=== PATIENT | male | born 1990 | race Caucasian/White ===

== ENCOUNTER 2019-01-24 10:31 | Observation (INO) ==
[2019-01-24] MEDS ORDERED: Isovue-370 500 ML BOTTLE IVP ONE (10:59)
--- NOTE | 2019-01-24 11:00 | Emergency Department Note ---
Disposition Clinical Impression: Abdominal pain Qualifiers: Abdominal location: generalized Qualified Code(s): R10.84 - Generalized abdominal pain Disposition: Still a Patient General Adult HPI - General Chief complaint: ED Abdominal Pain Stated complaint: Abdominal Pain/Diarrhea/Vomiting Time Seen by Provider: 01/24/19 10:44 Source: patient, family Mode of arrival: ambulatory Limitations: no limitations Nursing Notes Reviewed: Yes Vital Signs Reviewed: Yes - History of Present Illness HPI Narrative: Attestation note: Patient was seen with the emergency medicine resident/nurse practitioner/physician entry level administrative assistant/transitional resident/medical student: Dr. Lv Stevens I have personally performed a face to face evaluation on this patient. I have reviewed and agree with history and physical examination patient management and disposition. Briefly the salient points of the case are as follows: 28-year-old obese male states for 3 months had intermittent abdominal cramping and loose watery stools nausea and vomiting. Says this happens several times a day. Although he does not have any external signs of any twisting condition or weight loss. Patient has generalized abdominal tenderness no rebound or guarding. He is afebrile with stable vital signs essentially patient did bring a stool sample which appears odorous and reminds us of CHF. No recent antibiotics. We will obtain Abdominal pelvic CT IV fluids screening labs anti-medics analgesics and a C. difficile toxin stool study. Disposition pending. Pain Scale: 8 - Related Data Allergies Allergy/AdvReac Type Severity Reaction Status Date / Time Amoxicillin AdvReac Rash Verified 01/24/19 10:32 Penicillins AdvReac Rash Verified 01/24/19 10:32 Past Medical History - Past Medical History Medical history: Reports: GERD Psychiatric history: Reports: depression - Social History Smoking Status: Current every day smoker Smokeless Tobacco Status: No Alcohol use: Reports: none Drug use: Reports: none Physical Exam - General Limitations: no limitations General appearance: alert Course Vital Signs Temperature 97.6 F 01/24/19 10:32 Pulse Rate 85 01/24/19 10:32 Respiratory Rate 22 01/24/19 10:32 Blood Pressure 129/85 01/24/19 10:32 O2 Sat by Pulse Oximetry 98 01/24/19 10:32 Temperature 97.6 F 01/24/19 10:45 Pulse Rate 85 01/24/19 10:45 Respiratory Rate 22 01/24/19 10:45 Blood Pressure 129/85 01/24/19 10:45 O2 Sat by Pulse Oximetry 99 01/24/19 10:47 Oxygen Delivery Oxygen Delivery Room Air
[2019-01-24] MEDS ORDERED: *HR* Promethazine 25 MG/ML VIAL IVP ONE ×2 (11:01→16:23)
[2019-01-24] MEDS ORDERED: 0.9 % Sodium Chloride 1,000 ML IVC ONE (11:01)
[2019-01-24] MEDS: *HR* FentaNYL (PF) 100 MCG/2 ML VIAL IVP ONE (11:15)
[2019-01-24 11:48] LABS: Basophils % 0.4 %; Eosinophils # 0.3 K/mcL (0.0-0.6); Eosinophils % 2.8 %; Hematocrit 48.3 % (37.5-50.1); Hemoglobin 16.9 g/dL (12.9-16.9); Immature Granulocytes % 0.2 % (0-4); Lymphocytes # 1.9 K/mcL (0.6-4.6); Lymphocytes % 21.1 %; Mean Corpuscular Hemoglobin 30.6 pg (28.0-33.3); Mean Corpuscular Volume 87.5 fL (83.0-100.0); Mean Platelet Volume 10.7 fL (9.4-12.4); Neutrophils # 5.8 K/mcL (1.6-8.9); Platelet Count 199 K/mcL (140-400); Red Blood Count 5.52 M/mcL (4.19-5.50); Red Cell Distribution Width 13.2 % (11.5-14.5); Segmented Neutrophils % 64.5 %
[2019-01-24 12:08] LABS: Alanine Aminotransferase 31 Units/L (7-52); Albumin 4.3 g/dL (3.5-5.7); Albumin/Globulin Ratio 1.4 (1.1-2.2); Alkaline Phosphatase 86 Units/L (34-104); Aspartate Amino Transferase 17 Units/L (13-39); BUN/Creatinine Ratio 19 (6-26); Bilirubin,Direct 0.2 mg/dL (0.0-0.2); Bilirubin,Indirect 1.2 mg/dL (0.0-1.2); Bilirubin,Total 1.4 mg/dL (0.3-1.0); Blood Urea Nitrogen 13 mg/dL (6-20); Carbon Dioxide 24 mEq/L (23-29); Chloride 108 mEq/L (98-107); Glucose 94 mg/dL (70-105); Lipase 6 Units/L (11-82); Osmolality,Calculated 286 (280-300); Potassium 3.3 mEq/L (3.5-5.1); Sodium 138 mEq/L (136-145); Total Protein 7.3 g/dL (6.4-8.9); eGFR For Non-African Americans > 60 (> 60)
[2019-01-24] MEDS ORDERED: *HR* FentaNYL (PF) 100 MCG/2 ML VIAL IVP ONE (16:00)
[2019-01-24] MEDS ORDERED: Naloxone 0.4 MG/ML INJ IVP PRN ×2 (16:26→16:27)
[2019-01-24] MEDS ORDERED: *HR* Promethazine 25 MG/ML VIAL IVP PRN (16:27)
--- NOTE | 2019-01-24 16:36 | Emergency Department Note ---
Disposition Clinical Impression: Abdominal pain Qualifiers: Abdominal location: generalized Qualified Code(s): R10.84 - Generalized abdominal pain Disposition: Admitted As Inpatient Time of Disposition: 20:23 Abdominal Pain HPI - General Chief Complaint: ED Abdominal Pain Stated Complaint: Abdominal Pain/Diarrhea/Vomiting Time Seen by Provider: 01/24/19 10:44 Source: patient, family Mode of arrival: ambulatory Limitations: no limitations Nursing Notes Reviewed: Yes Vital Signs Reviewed: Yes - History of Present Illness HPI Narrative: 28-year-old male past medical history of recurrent abdominal pain, nausea vomiting Patient states has been worsening over the past week Patient states seen recently in the past 2 days in hospital in [place] was given multiple doses of Zofran and capsaicin cream which she says did not relieve his symptoms Patient states has been scheduled for GI follow-up for EGDs and colonoscopies which he has not kept Patient states Phenergan is the only thing I will relieve his nausea. Patient complains of 10 out of 10 diffuse abdominal pain as well as multiple episodes of nausea and vomiting throughout the past week. Pt Subjective Complaint: abdominal pain Onset (ago): week(s) Consistency: constant, Worsening Pain Severity: severe Pain Scale: 10 Quality: stabbing Radiation: none Migration to: no migration Improves with: nothing Worsens with: movement - Related Data Allergies Allergy/AdvReac Type Severity Reaction Status Date / Time Amoxicillin AdvReac Rash Verified 01/24/19 10:32 Penicillins AdvReac Rash Verified 01/24/19 10:32 All systems ED: reviewed and negative except as stated. Review of Systems: As Per HPI Constitutional: Reports: fever, chills Cardiovascular: Denies: chest pain Respiratory: Denies: dyspnea Gastrointestinal: Reports: abdominal pain, nausea, vomiting, diarrhea. Denies: constipation, hematemesis, hematochezia Genitourinary: Denies: hematuria Musculoskeletal: Denies: back pain, neck pain Neurological: Denies: headache, weakness, numbness, paresthesias Abdominal Pain PMH - Past Medical History Medical history: Reports: GERD Male Surgical History: Reports: no surgical history Psychiatric history: Reports: depression - Social History Smoking status: Current every day smoker Alcohol use: Reports: none Drug use: Reports: none Physical Exam - General Limitations: no limitations General appearance: alert, in no apparent distress - Head Head exam: atraumatic, normocephalic, normal inspection - Eye Eye exam: Present: normal appearance, PERRL, EOMI. Absent: scleral icterus - Neck Neck exam: Present: normal inspection, trachea midline - Chest Chest inspection: Present: normal inspection, symmetric chest wall rise - Respiratory Respiratory exam: Present: normal lung sounds bilaterally. Absent: respiratory distress, wheezes, stridor, accessory muscle use, prolonged expiratory phase - Cardiovascular Cardiovascular exam: Present: regular rate, normal rhythm, normal heart sounds, +S1, +S2. Absent: systolic murmur, diastolic murmur, JVD, +S3, +S4 - Abdominal Exam Abdominal exam: Present: soft, tenderness, normal bowel sounds. Absent: distention, guarding, rebound, rigidity, organomegaly Abdominal tenderness: Present: diffuse - Neurological Exam Neurological exam: Present: alert, oriented X3 - Psychiatric Psychiatric exam: Present: agitated - Skin Skin exam: Present: warm, dry, intact, normal color. Absent: rash, cyanosis, diaphoresis, erythema, pallor, mottled Course Course Narrative: Abdominal labs CT scan abdomen and pelvis Phenergan was fentanyl for management of patient's symptoms IV fluids Vital Signs Temperature 97.6 F 01/24/19 10:32 Pulse Rate 85 01/24/19 10:32 Respiratory Rate 22 01/24/19 10:32 Blood Pressure 129/85 01/24/19 10:32 O2 Sat by Pulse Oximetry 98 01/24/19 10:32 Temperature 98.1 F 01/24/19 20:09 Pulse Rate 71 01/24/19 20:09 Respiratory Rate 16 01/24/19 20:09 Blood Pressure 124/78 01/24/19 20:09 O2 Sat by Pulse Oximetry 96 01/24/19 20:09 Oxygen Delivery Oxygen Delivery Room Air Abdominal Pain - MDM Narrative Medical decision making narrative: CT scan shows colitis Patient continues to complain of intense abdominal pain and nausea and vomiting despite fluid management and medication Patient be admitted to hospitalist medicine service for intractable nausea and vomiting - Lab Data Lab results reviewed: Yes I reviewed the patient's lab results. Result diagrams: 01/24/19 11:28 01/24/19 11:28 Lab Results 01/24/19 01/24/19 01/24/19 Range/Units 11:28 11:28 13:47 WBC 9.0 (4.3-11.1) K/mcL RBC 5.52 H (4.19-5.50) M/mcL Hgb 16.9 (12.9-16.9) g/dL Hct 48.3 (37.5-50.1) % MCV 87.5 (83.0-100.0) fL MCH 30.6 (28.0-33.3) pg MCHC 35.0 (31.6-35.5) g/dL RDW 13.2 (11.5-14.5) % Plt Count 199 (140-400) K/mcL MPV 10.7 (9.4-12.4) fL Immature Gran % 0.2 (0-4) % Seg Neutrophils % 64.5 % Lymphocytes % 21.1 % Monocytes % 11.0 % Eosinophils % 2.8 % Basophils % 0.4 % Neutrophils # 5.8 (1.6-8.9) K/mcL Lymphocytes # 1.9 (0.6-4.6) K/mcL Monocytes # 1.0 (0.0-1.3) K/mcL Eosinophils # 0.3 (0.0-0.6) K/mcL Basophils # 0.0 (0.0-0.2) K/mcL Sodium 138 (136-145) mEq/L Potassium 3.3 L (3.5-5.1) mEq/L Chloride 108 H (98-107) mEq/L Carbon Dioxide 24 (23-29) mEq/L BUN 13 (6-20) mg/dL Creatinine 0.70 (0.70-1.30) mg/dL Est GFR ( Amer) > 60 (> 60) Est GFR (Non-Af Amer) > 60 (> 60) BUN/Creatinine Ratio 19 (6-26) Glucose 94 (70-105) mg/dL Calculated Osmolality 286 (280-300) Calcium 9.0 (8.6-10.3) mg/dL Total Bilirubin 1.4 H (0.3-1.0) mg/dL Direct Bilirubin 0.2 (0.0-0.2) mg/dL Indirect Bilirubin 1.2 (0.0-1.2) mg/dL AST 17 (13-39) Units/L ALT 31 (7-52) Units/L Alkaline Phosphatase 86 (34-104) Units/L Serum Total Protein 7.3 (6.4-8.9) g/dL Albumin 4.3 (3.5-5.7) g/dL Globulin 3.0 (2.4-3.5) g/dL Albumin/Globulin Ratio 1.4 (1.1-2.2) Lipase 6 L (11-82) Units/L Stl C. diff Tox B Gene Negative (Negative) - EKG Data EKG attestation: Yes I reviewed and interpreted this EKG. EKG results narrative: Patient EKG shows sinus rhythm with a heart of 73 bpm [place] interval of 180 ms, QRS duration of 111 ms, QT/QTc interval 401/440 ms respectively. There are no significant ST segment elevations, depressions, pathologic Q waves, abnormal T- wave inversions, or any other signs of acute ischemic change. There is no EKG available for comparison at this time.
--- NOTE | 2019-01-24 17:15 | Internal Med History&Physical ---
Date of Encounter: 01/24/19 Time of Encounter: 17:05 Internal Medicine - H&P: HPI Admitted From: Home Plans for Post Hospital Care: Home History of present illness: Mr. Condon is a 28 year old male with past medical history of depression, GERD, and chronic diarrhea presented with 3 months of history of intermittent diarrhea, associated with nausea, vomiting, and abdominal pain. Patient reported chronic diarrhea since adolescence, usually lasts about a week and then remits. He has been tested by PCP and was told he has mild lactose intolerance. However, his GI symptoms exacerbated in the last 3 months which include severe abdominal pain, nausea, vomiting, and watery/foul smell diarrhea. He also had a significant weight loss and has to take marijuana to ease pain. He is having about 5 time diarrhea every day, it also occurs at night when he is sleeping. He noticed mucus in the stool but denies any blood. Family history is his mo ther also has similar GI problem. Patient denies any recent travel, sick contact, drinking well water. He has 2 dogs at home. He denies fever, chills, night sweats, or sleeping habit change. Denies skin rash, myalgia, or arthralgia. While in the ED, patient vital signs were stable, he does not appear dehydrated. His labs is only significant for low potassium. A C. difficile toxin study was negative. Due to his severe GI symptoms, patient will be admitted for further evaluation. CODE STATUS discussed with patient, he wishes to be full code. Past Med Surg Social Fam HX - Past Medical History Medical history: GERD Psychiatric history: depression - Social History Smoking Status: Current every day smoker Smokeless Tobacco Status: No Alcohol use: none Drug use: none Internal Medicine - H&P: Meds Allergy/AdvReac Type Severity Reaction Status Date / Time Amoxicillin AdvReac Rash Verified 01/24/19 10:32 Penicillins AdvReac Rash Verified 01/24/19 10:32 All Systems PM: A 10-system review of systems was performed and is negative for pertinent findings except as documented above in the HPI. Review of systems: REVIEW OF SYSTEMS: CONSTITUTIONAL: No weight loss, fever, chills, weakness or fatigue. HEENT: Eyes: No visual loss, blurred vision, double vision or yellow sclerae. Ears, Nose, Throat: No hearing loss, sneezing, congestion, runny nose or sore throat. SKIN: No rash or itching. CARDIOVASCULAR: No chest pain, chest pressure or chest discomfort. No palpitations or edema. RESPIRATORY: No shortness of breath, cough or sputum. GASTROINTESTINAL: see HPI. GENITOURINARY: No dysuria, urgency, or frequency. NEUROLOGICAL: No headache, dizziness, syncope, paralysis, ataxia, numbness or tingling in the extremities. No change in bowel or bladder control. MUSCULOSKELETAL: No muscle, back pain, joint pain or stiffness. HEMATOLOGIC: No anemia, bleeding or bruising. LYMPHATICS: No enlarged nodes. No history of splenectomy. PSYCHIATRIC: No history of depression or anxiety. ENDOCRINOLOGIC: No reports of sweating, cold or heat intolerance. No polyuria or polydipsia. - Constitutional Vitals: Temp Pulse Resp BP Pulse Ox 97.6 F 66 16 139/73 99 01/24/19 10:45 01/24/19 13:48 01/24/19 13:48 01/24/19 13:48 01/24/19 13:48 General appearance: Present: A&O X 3 Exam: PHYSICAL EXAMINATION: GENERAL APPEARANCE: The patient is alert, oriented and in no acute distress. HEENT: Head is normocephalic. The sinuses are nontender. Pupils are equal and reactive. The nares are patent. Oropharynx clear without lesions. NECK: Supple without lymphadenopathy. HEART: Regular rate and rhythm. LUNGS: No crackles or wheezes are heard. ABDOMEN: Soft, nontender, nondistended with good bowel sounds heard. Inguinal area is normal. EXTREMITIES: Without cyanosis, clubbing or edema. NEUROLOGICAL: Gross nonfocal. SKIN: Warm and dry without any rash. Internal Med - H&P Results - Labs CBC & Chem 7: 01/24/19 11:28 01/24/19 11:28 Labs: Short CBC 01/24/19 Range/Units 11:28 WBC 9.0 (4.3-11.1) K/mcL Hgb 16.9 (12.9-16.9) g/dL Hct 48.3 (37.5-50.1) % Plt Count 199 (140-400) K/mcL Neutrophils # 5.8 (1.6-8.9) K/mcL BMP 01/24/19 11:28 Sodium 138 Potassium 3.3 L Chloride 108 H Carbon Dioxide 24 BUN 13 Creatinine 0.70 Glucose 94 Calcium 9.0 Liver Function 01/24/19 Range/Units 11:28 Total Bilirubin 1.4 H (0.3-1.0) mg/dL Direct Bilirubin 0.2 (0.0-0.2) mg/dL AST 17 (13-39) Units/L ALT 31 (7-52) Units/L Alkaline Phosphatase 86 (34-104) Units/L Albumin 4.3 (3.5-5.7) g/dL - Impressions ITS Impressions Abdomen/Pelvis CT 01/24/19 10:59 IMPRESSION: 1. Fluid throughout the colon and rectum compatible with nonspecific diarrheal disease. No colonic wall thickening to indicate colitis 2. Hepatic steatosis 3. 1 cm right adrenal myelolipoma D/ / Tom Heard MD / Tom Heard MD Interpreting Provider: Tom Heard MD - Assessment and Plan (1) Abdominal pain, vomiting, and diarrhea Current Visit: Yes Status: Acute Assessment and plan: 28-year-old male with past medical history of depression, GERD, and chronic diarrhea presented with 3 months history of worsening GI symptoms including abdominal pain, nausea, vomiting, and diarrhea. pt reported a history of mild lactose intolerance. Denies sick contact, recent travel, or drinking of contaminated water. Stool was negative for C. difficile. CT abdomen/pelvis no intra-abdominal pathology or bowel wall thickening. Based on the history, lab values, and imaging studies, inframammary diarrhea is unlikely. he denies history of chronic pancreatitis or cystic fibrosis, malabsorption related diarrhea is less likely. Nocturnal symptoms and a watery stool make the secretory diarrhea likely. IBS is a diagnosis of exclusion. - We will check stool for occult blood and calprotectin to rule out IBD. - anti-TTG to rule out celiac disease. - No diary product and watch change of diarrhea. - Supportive care with IV fluid and pain medicine. - GI consult, appreciate help. (2) Depression Current Visit: No Status: Chronic Assessment and plan: Continue home medication. Qualifiers: Depression Type: unspecified Qualified Code(s): F32.9 - Major depressive disorder, single episode, unspecified (3) GERD (gastroesophageal reflux disease) Current Visit: No Status: Chronic Assessment and plan: Continue home medication. Qualifiers: Esophagitis presence: esophagitis presence not specified Qualified Code(s): K21.9 - Gastro-esophageal reflux disease without esophagitis (4) DVT prophylaxis Current Visit: Yes Status: Acute Assessment and plan: Heparin subcutaneous. - Time Spent With Patient Total time spent is greater than 50% in coordination of care (as documented) at patient's floor/unit and/or counseling patient: Greater than 35 minutes
[2019-01-24] MEDS ORDERED: SODIUM CHLORIDE/NAHCO3/KCL/PEG 4,000 ML SOLN.RECON PO ONE (18:08)
[2019-01-24] MEDS: *HR* Heparin 5,000 UNIT/ML VIAL SQ SCH (18:33)
[2019-01-24] MEDS: Ondansetron 4 MG/2 ML VIAL IVP PRN (18:33)
[2019-01-24] MEDS: Ringers Solution, Lactated 3,000 ML IVC SCH (18:33)
[2019-01-24] MEDS ORDERED: *HR* LORazepam 2 MG/ML VIAL IVP ONE (19:23)
[2019-01-24] MEDS: traMADol 50 MG TABLET PO PRN (20:13)
[2019-01-25] MEDS: traMADol 50 MG TABLET PO PRN (01:36)
[2019-01-25] MEDS: Nicotine 14 MG PATCH.TD24 TD SCH ×2 (01:40→11:07)
[2019-01-25 01:56] LABS: Basophils % 0.3 %; Eosinophils # 0.3 K/mcL (0.0-0.6); Eosinophils % 4.1 %; Hematocrit 44.2 % (37.5-50.1); Immature Granulocytes % 0.1 % (0-4); Lymphocytes # 2.1 K/mcL (0.6-4.6); Lymphocytes % 29.1 %; Mean Corpuscular HGB Conc 34.4 g/dL (31.6-35.5); Mean Corpuscular Hemoglobin 30.5 pg (28.0-33.3); Mean Corpuscular Volume 88.6 fL (83.0-100.0); Mean Platelet Volume 10.7 fL (9.4-12.4); Monocytes # 0.8 K/mcL (0.0-1.3); Monocytes % 10.5 %; Platelet Count 169 K/mcL (140-400); Red Blood Count 4.99 M/mcL (4.19-5.50); Red Cell Distribution Width 13.5 % (11.5-14.5); Segmented Neutrophils % 55.9 %
[2019-01-25 02:05] LABS: Hemoglobin 15.2 g/dL (12.9-16.9)
[2019-01-25 02:16] LABS: Alanine Aminotransferase 34 Units/L (7-52); Albumin 3.7 g/dL (3.5-5.7); Albumin/Globulin Ratio 1.5 (1.1-2.2); Alkaline Phosphatase 72 Units/L (34-104); Aspartate Amino Transferase 22 Units/L (13-39); BUN/Creatinine Ratio 15 (6-26); Bilirubin,Total 1.4 mg/dL (0.3-1.0); Blood Urea Nitrogen 11 mg/dL (6-20); Calcium 8.5 mg/dL (8.6-10.3); Carbon Dioxide 25 mEq/L (23-29); Chloride 109 mEq/L (98-107); Globulin 2.5 g/dL (2.4-3.5); Glucose 90 mg/dL (70-105); Magnesium 1.9 mg/dL (1.6-2.6); Osmolality,Calculated 285 (280-300); Phosphorous 3.3 mg/dL (2.7-4.5); Potassium 3.5 mEq/L (3.5-5.1); Sodium 138 mEq/L (136-145); Total Protein 6.2 g/dL (6.4-8.9); eGFR For Non-African Americans > 60 (> 60)
[2019-01-25] MEDS: Ringers Solution, Lactated 3,000 ML IVC SCH (03:15)
[2019-01-25] MEDS: Ondansetron 4 MG/2 ML VIAL IVP PRN (05:39)
[2019-01-25] MEDS: Acetaminophen 325 MG TABLET PO PRN ×2 (05:39→13:14)
[2019-01-25] MEDS: *HR* Heparin 5,000 UNIT/ML VIAL SQ SCH (05:40)
[2019-01-25] MEDS ORDERED: *HR* FentaNYL (PF) 100 MCG/2 ML VIAL ONE (07:12)
[2019-01-25] MEDS ORDERED: *HR* Midazolam HCl 5 MG/5 ML VIAL IVP ONE ×2 (07:13→07:23)
[2019-01-25] MEDS ORDERED: *HR* FentaNYL (PF) 100 MCG/2 ML VIAL IVP ONE (07:23)
[2019-01-25] MEDS ORDERED: Simethicone 40 MG/0.6 ML MLS IR ONE (07:23)
--- NOTE | 2019-01-25 07:23 | Pre-Sedation Evaluation ---
Pre-sedation evaluation - Pre-sedation checklist Date of procedure: 01/25/19 Recent Vitals: Last Vital Signs Temp 97.7 F 01/25/19 06:57 Pulse 71 01/25/19 06:57 Resp 18 01/25/19 06:57 BP 103/73 01/25/19 06:57 Pulse Ox 97 01/25/19 06:57 ASA Classification *see protocol: CLASS II-Mild systemic disease
[2019-01-25] MEDS: *HR* FentaNYL (PF) 100 MCG/2 ML VIAL IVP ONE (07:39)
--- NOTE | 2019-01-25 09:28 | Gastroenterology Consult Note ---
Date of Encounter: 01/25/19 Time of Encounter: 08:30 - Assessment and plan (1) Abdominal pain, vomiting, and diarrhea Current Visit: Yes Status: Acute Assessment and plan: Start PPI. EGD and colonoscopy today to rule out esophagitis, PUD, gastritis, duodenitis, or colitis. Stool studies pending. Treat symptomatically, can follow up with GI as an outpatient after discharge. (2) GERD (gastroesophageal reflux disease) Current Visit: No Status: Chronic Qualifiers: Esophagitis presence: esophagitis presence not specified Qualified Code(s): K21.9 - Gastro-esophageal reflux disease without esophagitis - Time Spent With Patient Total time spent is greater than 50% in coordination of care (as documented) at patient's floor/unit and/or counseling patient: GI History of Present Illness - Data of Consult Patient: new to practice Consult date: 01/25/19 Requesting Physician: Gisselle Looney MD - Consult Narrative Reason for consult: nausea/vomiting/diarrhea History of present illness: Mr. Condon is a 28 year old male with past medical history of depression, GERD, and chronic diarrhea presented with 3 months of history of intermittent diarrhea, associated with nausea, vomiting, and abdominal pain. Patient reported chronic diarrhea since adolescence, usually lasts about a week and then remits. He states has been much worse for the past 3 months with severe abdominal pain, nausea, vomiting, and watery/foul smell diarrhea. He also had a significant weight loss and has to take marijuana to ease pain. He is having about 5 diarrhea stoolsevery day, it also occurs at night when he is sleeping. He noticed mucus in the stool but denies any blood. He has been tested by PCP and was told he has mild lactose intolerance. He does admit to some streaky bright red hematemesis. Family history is his mother also has similar GI problem. Patient denies any recent travel, sick contact, drinking well water. He has 2 dogs at home. He denies fever, chills, night sweats, or sleeping habit change. Denies skin rash, myalgia, or arthralgia. Past Med Surg Social Fam HX - Past Medical History Medical history: GERD Psychiatric history: depression - Social History Smoking Status: Current every day smoker Packs per day: 1 Smokeless Tobacco Status: No Alcohol use: none Drug use: marijuana - Family History Grandmother Age: 52 Age at : 52 Cause of : CHF Review of Systems: GI: as per [place] GENERAL: denies fever, has some chills EYES: denies yellow discoloration ENT: denies pain with swallowing or difficulty swallowing CARDIO: denies chest pain, palpitations RESP: No Shortness of breath with exertion : denies change in color of urine NEURO: denies any weakness HEME: Denies any bruising MS: denies joint pain, joint swelling or back pain. DERM: denies rash or itching PSYCH: history of anxiety and depression - Constitutional Vitals: Temp Pulse Resp BP Pulse Ox 97.7 F 61 18 111/48 97 01/25/19 06:57 01/25/19 07:49 01/25/19 07:49 01/25/19 07:49 01/25/19 07:49 Exam: CONSTITUTIONAL:alert, no acute distress.HEAD:normocephalic.EYES:no jaundice.NECK:no obvious swelling.HEART:regular rate and rhythm, no murmurs.LUNGS:bilateral fair air entry.ABDOMEN:non distended, soft, tender epigastric pain, no masses palpable, no organomegaly.RECTAL EXAM:Deferred.EXTREMITIES:no clubbing, cyanosis or edema, obese.SKIN:no stigmata of chronic liver disease.NEUROLOGIC:no obvious focal defect. Results - Labs CBC & Chem 7: 01/25/19 01:21 01/25/19 01:21 Labs: Last Result 01/25/19 01:21 Calcium 8.5 L Entire Visit 01/25/19 01/25/19 01:21 01:21 Hgb 15.2 D Hct 44.2 Total Bilirubin 1.4 H AST 22 ALT 34 - Impressions Impressions Abdomen/Pelvis CT 01/24/19 10:59 IMPRESSION: 1. Fluid throughout the colon and rectum compatible with nonspecific diarrheal disease. No colonic wall thickening to indicate colitis 2. Hepatic steatosis 3. 1 cm right adrenal myelolipoma D/ / Tom Heard MD / Tom Heard MD Interpreting Provider: Tom Heard MD Consult Discharge Plan - Plan Referrals: Fauzia Camarena, [employer]LECT[employer] MACHINIST [Primary Care Provider] -
[2019-01-25 14:19] VITALS: BP 107/65
[2019-01-25 14:37] LABS: Amphetamine Screen,Urine Negative ng/mL (Cutoff=1000); Barbiturate Screen,Urine Negative ng/mL (Cutoff=200); Benzodiazepines Screen,Urine Positive ng/mL (Cutoff=200); Cannabinoid Screen,Urine Positive ng/mL (Cutoff = 50); Cocaine Screen,Urine Negative ng/mL (Cutoff= 300); Opiate Screen,Urine Negative ng/mL (Cutoff=300); Phencyclidine Screen,Urine Negative ng/mL (Cutoff=25)
--- NOTE | 2019-01-25 14:54 | Discharge Summary ---
- NOTES TO OUTPATIENT PROVIDER Notes to Outpatient Provider: f/u with GI within a week. Orders not resulted at time of discharge: Pending orders 01/24/19 17:20 Tissue Transglutaminase Ab,IgA Routine Tissue Transglutaminase Ab,IgG Routine 01/25/19 07:47 Surgical Pathology [PTH] Routine Date of Encounter: 01/25/19 Time of Encounter: 14:49 - Discharge Diagnosis (1) Abdominal pain, vomiting, and diarrhea Priority: Primary Status: Acute (2) Depression Priority: Secondary Status: Chronic Qualifiers: Depression Type: unspecified Qualified Code(s): F32.9 - Major depressive disorder, single episode, unspecified (3) GERD (gastroesophageal reflux disease) Priority: Secondary Status: Chronic Qualifiers: Esophagitis presence: esophagitis presence not specified Qualified Code(s): K21.9 - Gastro-esophageal reflux disease without esophagitis (4) DVT prophylaxis Priority: Primary Status: Acute Hospital course: Mr. Condon is a 28 year old male with past medical history of depression, GERD, and chronic diarrhea presented with 3 months of history of intermittent diarrhea, associated with nausea, vomiting, and abdominal pain. Patient reported chronic diarrhea since adolescence, usually lasts about a week and then remits. He has been tested by PCP and was told he has mild lactose intolerance. However, his GI symptoms exacerbated in the last 3 months which include severe abdominal pain, nausea, vomiting, and watery/foul smell diarrhea. He also had a significant weight loss and has to take marijuana to ease pain. He is having about 5 time diarrhea every day, it also occurs at night when he is sleeping. He noticed mucus in the stool but denies any blood. Family history is his mother also has similar GI problem. Patient denies any recent travel, sick contact, drinking well water. He has 2 dogs at home. He denies fever, chills, night sweats, or sleeping habit change. Denies skin rash, myalgia, or arthralgia. While in the ED, patient vital signs were stable, he does not appear dehydrated. His labs is only significant for low potassium. A C. difficile toxin study was negative. Due to his severe GI symptoms, patient will be admitted for further evaluation. GI was consulted, patient underwent colonoscopy on 01/25, official report is still pending. Lab test for celiac disease was also up attended but results are pending. On the second hospital day, patient feels much better, his abdominal pain and the diarrhea has improved, he requested to be discharged. After discussed with patient about the plan of management, he will be discharged home today, he will follow-up GI with a week to discuss with results of relevant labs and a colonoscopy. Discharge discussed with: patient Time spent discussing smoking cessation with patient: more than 10 minutes - Time Spent with Patient Total time spent providing and/or coordinating discharge services: Time spent: Greater than 30 minutes - Discharge Medications Prescriptions: Continued Venlafaxine HCl [Venlafaxine HCl ER] 75 mg PO DAILY Omeprazole [PriLOSEC] 20 mg PO DAILY Home Medications: Omeprazole [PriLOSEC] 20 mg PO DAILY 01/24/19 [History] Venlafaxine HCl [Venlafaxine HCl ER] 75 mg PO DAILY 01/24/19 [History] Allergies/Adverse Reactions: Allergy/AdvReac Type Severity Reaction Status Date / Time Amoxicillin AdvReac Rash Verified 01/24/19 10:32 Penicillins AdvReac Rash Verified 01/24/19 10:32 Date of admission: 01/24/19 17:02 Primary care physician: Fauzia Camarena CNP Consults: 01/24/19 17:00 Consult to Gastroenterology [CONS] Stat Consulting Provider: Gastroenterology Mikala Reason for Consult: diarrhea Call Completed: Yes Anticipated date of discharge: 01/25/19 - Constitutional Vitals: Temp Pulse Resp BP Pulse Ox 97.9 F 71 16 107/65 97 01/25/19 14:16 01/25/19 14:16 01/25/19 14:16 01/25/19 14:16 01/25/19 14:16 General appearance: Present: A&O X 3 Exam: PHYSICAL EXAMINATION: GENERAL APPEARANCE: The patient is alert, oriented and in no acute distress. HEENT: Head is normocephalic. The sinuses are nontender. Pupils are equal and reactive. The nares are patent. Oropharynx clear without lesions. NECK: Supple without lymphadenopathy. HEART: Regular rate and rhythm. LUNGS: No crackles or wheezes are heard. ABDOMEN: Soft, nontender, nondistended with good bowel sounds heard. Inguinal area is normal. EXTREMITIES: Without cyanosis, clubbing or edema. NEUROLOGICAL: Gross nonfocal. SKIN: Warm and dry without any rash. - Patient Status Disposition: Home, Self-Care Condition: Good Functional capacity at discharge: independent ambulation Overall status at discharge: patient is progressing back to baseline - Discharge Instructions Follow Up With: Fauzia Camarena [employer]TEGRATION CONSULTANT [Primary Care Provider] - - Diet and Activity Activity: increase activity as tolerated Diet: advance to your usual diet
[2019-01-27 07:33] LABS: Tissue Transglutaminase IgA 0 U/mL (0-3); Tissue Transglutaminase IgG 1 U/mL (0-5)
--- NOTE | 2019-01-28 13:48 | Electrocardiograph Report ---
[facility] Test Date: 2019-01-24 Pat Name: Taran Condon Department: [id number] Room: 3A37 Gender: M Diabetes Physician: : [id number] Requested By: Lv Stevens Order Number: [id number] Reading MD: Rolando Burrows Measurements Intervals [place] Rate: 73 P: -9 RI: 188 QRS: 34 QRSD: 111 T: 44 QT: 401 QTc: 442 Interpretive Statements Sinus rhythm RSR' in V1 or V2, right VCD or RVH Electronically Signed On 01-28-2019 13:47:11 EDT by Rolando Burrows
== END 2019-01-25 15:53 | disposition home or self-care (01) ==
LOC: 3ANU 10:31 → EMEROOARM 10:31 → 3ANU 17:26
PROVIDERS: ADMIT Internal Medicine; ATTEND Internal Medicine
PROC: ENDOCBX (2019-01-25 07:30)